=== PATIENT | male | born 1990 | race American Indian/Alaskan Native ===

== ENCOUNTER 2019-05-06 00:35 | Emergency (ER) | payer SELFPAY ==
[2019-05-06 01:28] LABS: Basophils # (Auto) 0.1 K/mm3 (0.0-0.1); Basophils % (Auto) 0.7 % (0.0-1.8); Eosinophils # (Auto) 0.1 K/mm3 (0.0-0.4); Hematocrit 40.6 % (35.5-45.6); Lymphocytes # (Auto) 1.6 K/mm3 (1.2-5.4); Mean Corpuscular HGB Conc 35 % (32-34); Mean Corpuscular Volume 90 fl (84-94); Monocytes # (Auto) 0.7 K/mm3 (0.0-0.8); Monocytes % (Auto) 9.9 % (0.0-7.3); Platelet Count 202 K/mm3 (140-440); Red Blood Count 4.51 M/mm3 (3.65-5.03); Red Cell Distribution Width 14.1 % (13.2-15.2)
[2019-05-06 01:49] LABS: BUN/Creatinine Ratio 9; Blood Urea Nitrogen 8 mg/dL (9-20); Calcium 9.2 mg/dL (8.4-10.2); Hemolysis Index 4
[2019-05-06 02:20] LABS: Bilirubin,Urine NEG (Negative); Blood,Urine NEG (Negative); Color,Urine Yellow (Yellow); Urobilinogen,Urine < 2.0 mg/dL (<2.0); WBC,Urine < 1.0 /HPF (0.0-6.0)
[2019-05-06 02:28] LABS: Amphetamine Screen,Urine PRESUMPTIVE NEGATIVE; Benzodiazepines Screen,Urine PRESUMPTIVE NEGATIVE; Cannabinoid Screen,Urine PRESUMPTIVE NEGATIVE; Cocaine Screen,Urine PRESUMPTIVE NEGATIVE; Methadone Screen,Urine PRESUMPTIVE NEGATIVE; Opiate Screen,Urine PRESUMPTIVE NEGATIVE
--- NOTE | 2019-05-06 02:36 | Emergency Department Report ---
HPI <ELVI BUCK - Last Filed: 05/06/19 09:51> - HPI HPI: 29-year-old -[place] male presents to the emergency department with a complaint of needing to be "stabilized" that he says is essentially being restarted on his medications. The patient says that it has been many months, if not close to one year, since he was last on medications for his bipolar disorder. He admits to some occasional auditory hallucinations. He denies any visual hallucinations or any suicidal or homicidal ideations. The patient is very twitchy and admits to feeling paranoid. At one point he is asking to be pl aced in isolation and one of the padded rooms so he can "have time to think." He denies any alcohol or illicit drug use. He denies having any primary care physician or psychiatrist for follow-up. He has not taken anything for his symptoms prior to presentation today. <WILNER ARITA Mary - Last Filed: 05/06/19 21:58> - General Chief Complaint: Psych Time Seen by Provider: 05/06/19 01:34 ED Past Medical Hx <KRISTEN BUCKNETTA - Last Filed: 05/06/19 09:51> - Past Medical History Previous Medical History?: Yes Hx Psychiatric Treatment: Yes (personality disorder) - Surgical History Past Surgical History?: No - Social History Smoking Status: Current Every Day Smoker Substance Use Type: None <WILNER ARITA - Last Filed: 05/06/19 21:58> - Medications Home Medications: Home Medications Medication Instructions Recorded Confirmed Last Taken Type ARIPiprazole 5 mg PO QDAY #30 tablet 05/06/19 Unknown Rx ED Review of Systems ROS: Stated complaint: MH EVALULATION Other details as noted in HPI <KRISTEN BUCKNETTA - Last Filed: 05/06/19 09:51> ROS: Stated complaint: MH EVALULATION Other details as noted in HPI Comment: All other systems reviewed and negative Constitutional: denies: chills, fever Respiratory: denies: cough, shortness of breath Cardiovascular: denies: chest pain, palpitations Gastrointestinal: denies: abdominal pain, vomiting Musculoskeletal: denies: back pain Neurological: denies: headache, weakness Psychiatric: auditory hallucinations, other (paranoia). denies: visual hallucinations, homicidal thoughts, suicidal thoughts <WILNER ARITA - Last Filed: 05/06/19 21:58> Physical Exam - Physical Exam Vital Signs: Vital Signs 05/06/19 05/06/19 05/06/19 00:40 02:18 08:00 Temperature 98.1 F 97.9 F 97.5 F L Pulse Rate 81 83 67 Respiratory 18 18 18 Rate Blood Pressure 115/58 Blood Pressure 134/88 136/93 [Left] O2 Sat by Pulse 99 98 98 Oximetry <ELVI BUCK - Last Filed: 05/06/19 09:51> - Physical Exam Vital Signs: Vital Signs 05/06/19 05/06/19 00:40 02:18 Temperature 98.1 F 97.9 F Pulse Rate 81 83 Respiratory 18 18 Rate Blood Pressure 115/58 Blood Pressure 134/88 [Left] O2 Sat by Pulse 99 98 Oximetry Physical Exam: GENERAL: The patient is well-developed well-nourished. HEENT: Normocephalic. Atraumatic. Patient has moist mucous membranes. EYES: Extraocular motions are intact. . NECK: Supple. Trachea is midline. CHEST/LUNGS: Clear to auscultation. There is no respiratory distress noted. HEART/CARDIOVASCULAR: Regular. There is no tachycardia. There is no murmur. ABDOMEN: There is no abdominal distention. SKIN:Skin is warm and dry. . NEURO: The patient is awake, alert, and oriented. The patient is cooperative. The patient has no focal neurologic deficits. Normal speech. MUSCULOSKELETAL: There is no tenderness or deformity. There is no limitation range of motion. There is no evidence of acute injury. PSYCH: Patient is very twitchy and anxious. <WILNER ARITA - Last Filed: 05/06/19 21:58> ED Course Vital Signs 05/06/19 05/06/19 05/06/19 00:40 02:18 08:00 Temperature 98.1 F 97.9 F 97.5 F L Pulse Rate 81 83 67 Respiratory 18 18 18 Rate Blood Pressure 115/58 Blood Pressure 134/88 136/93 [Left] O2 Sat by Pulse 99 98 98 Oximetry <ELVI BUCK - Last Filed: 05/06/19 09:51> Vital Signs 05/06/19 05/06/19 00:40 02:18 Temperature 98.1 F 97.9 F Pulse Rate 81 83 Respiratory 18 18 Rate Blood Pressure 115/58 Blood Pressure 134/88 [Left] O2 Sat by Pulse 99 98 Oximetry <WILNER ARITA - Last Filed: 05/06/19 21:58> ED Medical Decision Making - Lab Data Result diagrams: 05/06/19 01:16 05/06/19 01:16 - Medical Decision Making Psychiatric team has provided prescriptions for medications for Mr Rojas. He is discharged home. <ELVI BUCK - Last Filed: 05/06/19 09:51> - Lab Data Result diagrams: 05/06/19 01:16 05/06/19 01:16 - Medical Decision Making This patient presents to the emergency department with the request for being stabilized on psychiatric medications. He has history of bipolar disorder. He denies any suicidal or homicidal ideations. He does have some intermittent auditory hallucinations. Mostly the patient complains of some paranoia and appears twitchy and anxious. At one point he is asking to be allowed to be in isolation and one of the padded rooms so he can "have time to think." The patient does not necessarily meet criteria to be made a 1013 and require involuntary inpatient psychiatric admission. However he does need a psychiatric assessment and has agreed to remain in the emergency department until this can be done in the morning. His labs are mostly unremarkable. Vital signs stable. If necessary, I would deem him medically cleared for psychiatric placement. - Differential Diagnosis bipolar disorder, schizophrenia, schizoaffective, substance abuse <WILNER ARITA - Last Filed: 05/06/19 21:58> Critical care attestation.: If time is entered above; I have spent that time in minutes in the direct care of this critically ill patient, excluding procedure time. <ELVI BUCK - Last Filed: 05/06/19 09:51> Critical Care Time: No Critical care attestation.: If time is entered above; I have spent that time in minutes in the direct care of this critically ill patient, excluding procedure time. <WILNER ARITA - Last Filed: 05/06/19 21:58> ED Disposition Is pt being admited?: No Does the pt Need Aspirin: No <ELVI BUCK - Last Filed: 05/06/19 09:51> Is pt being admited?: No Time of Disposition: 02:36 <WILNER ARITA - Last Filed: 05/06/19 21:58> Clinical Impression: History of bipolar disorder, Paranoia, Anxious appearance Disposition: DC-01 TO HOME OR SELFCARE Condition: Stable Prescriptions: ARIPiprazole 5 mg PO QDAY #30 tablet Referrals: SILVIO ACUNA MD [Primary Care Provider] - 3-5 Days
[2019-05-06 08:22] VITALS: BP 136/93
[2019-05-06] MEDS ORDERED: ARIPiprazole 5 MG TAB PO SCH (10:00)
== END 2019-05-06 11:53 | disposition home or self-care (01) ==
LOC: ED 00:35
DX: F31.9 Bipolar disorder, unspecified (principal); F22 Delusional disorders; F41.9 Anxiety disorder, unspecified; F17.200 Nicotine dependence, unspecified, uncomplicated
CPT/HCPCS: 36415; 80048; 80307; 80320; 81001; 85025; 99284; G0480

== ENCOUNTER 2019-05-10 21:29 | Emergency (ER) | payer SELFPAY ==
[2019-05-10] MEDS ORDERED: HALOPERIDOL LACTATE 5 MG/1 ML INJ IM PRN (23:34)
[2019-05-10] MEDS ORDERED: LORazepam 2 MG/ML VIAL IM PRN (23:34)
--- NOTE | 2019-05-10 23:41 | Emergency Department Report ---
ED General Adult HPI - General Chief complaint: Psych Stated complaint: MH EVAL Time Seen by Provider: 05/10/19 23:14 Source: patient, EMS (EMS documentation not available at this time for chart review), RN notes reviewed, old records reviewed Mode of arrival: Stretcher Limitations: Other (patient appears to be disorganized and is a poor historian) - History of Present Illness Initial comments: This is a 29-year-old gentleman. This patient is not known to myself previously. Apparently has a history of bipolar disorder. He presented to this emergency department a few days ago with a request for psychiatric stabilization, he was seen by psychiatry, and was prescribed Abilify. Apparently, the patient has not filled this prescription. The patient is reportedly brought to the hospital by EMS with a complaint of homelessness, and not being able to take his prescription medication. The patient denies physical pain. The patient is a poor historian. He is wandering and erratic. He is not able to describe the qualitative nature of his symptoms, exacerbating or relieving factors. At one point in time, the patient made passive comments abo ut wanting to be on 1013 status. He was seen in this department a few days ago, had appropriate screening laboratory studies, medically cleared, and also cleared from psychiatry. No additional history is available at this time. -: unknown Radiation: other Severity scale (0 -10): 2 Quality: other Improves with: other Worsens with: other Associated Symptoms: other Treatments Prior to Arrival: other - Related Data Previous Rx's Medication Instructions Recorded Last Taken Type ARIPiprazole 5 mg PO QDAY #30 tablet 05/06/19 Unknown Rx Allergies Allergy/AdvReac Type Severity Reaction Status Date / Time No Known Allergies Allergy Unverified 05/06/19 00:44 ED Review of Systems ROS: Stated complaint: MH EVAL Other details as noted in HPI Comment: Unobtainable due to pts medical conditions (patient appears to be disorganized, he is a poor historian and not forthcoming.) ED Past Medical Hx - Past Medical History Previous Medical History?: Yes Hx Psychiatric Treatment: Yes (personality disorder) - Social History Smoking Status: Former Smoker Substance Use Type: None - Medications Home Medications: Home Medications Medication Instructions Recorded Confirmed Last Taken Type ARIPiprazole 5 mg PO QDAY #30 tablet 05/06/19 Unknown Rx ED Physical Exam - General Limitations: Other (psychiatrically disorganized) General appearance: alert, in no apparent distress - Head Head exam: Present: atraumatic, normocephalic - Eye Eye exam: Present: normal appearance, EOMI. Absent: nystagmus - ENT ENT exam: Present: normal exam, normal orophraynx, mucous membranes moist, normal external ear exam - Neck Neck exam: Present: normal inspection, full ROM. Absent: tenderness, meningismus - Respiratory Respiratory exam: Present: normal lung sounds bilaterally. Absent: respiratory distress - Cardiovascular Cardiovascular Exam: Present: regular rate, normal rhythm, normal heart sounds. Absent: bradycardia, tachycardia, irregular rhythm, systolic murmur, diastolic murmur, rubs, gallop - GI/Abdominal GI/Abdominal exam: Present: soft. Absent: distended, tenderness, guarding, rebound, rigid, pulsatile mass - Rectal Rectal exam: Present: deferred - Extremities Exam Extremities exam: Present: normal inspection, full ROM, other (2+ pulses noted in the bilateral upper and lower extremities. There is no long bony tenderness. The pelvis is stable. The muscular compartments are soft. There is no palpable cord. There is no redness, pus or streaking.). Absent: pedal edema, calf tenderness - Back Exam Back exam: Present: normal inspection, full ROM. Absent: tenderness, CVA tenderness (L), paraspinal tenderness, vertebral tenderness - Neurological Exam Neurological exam: Present: alert, other (there is no facial droop. Tongue is midline. Extraocular movements are intact bilaterally. Walking with a steady gait. Speaking in full sentences. Normal appropriate thought content. 5 out of 5 strength in 4 extremities. Sensation is intact to light touch in 4 extremities.) - Psychiatric Psychiatric exam: Present: agitated, flat affect - Skin Skin exam: Present: warm, dry, intact, normal color. Absent: rash ED Course Vital Signs 05/10/19 05/10/19 05/11/19 21:50 22:39 01:00 Temperature 98.2 F 98.2 F Pulse Rate 82 68 Respiratory 16 16 18 Rate Blood Pressure 142/86 Blood Pressure 142/86 102/76 [Right] O2 Sat by Pulse 100 100 97 Oximetry 05/11/19 05/11/19 07:46 14:34 Temperature 97.9 F 98.2 F Pulse Rate 70 95 H Respiratory 18 18 Rate Blood Pressure Blood Pressure 113/63 146/102 [Right] O2 Sat by Pulse 98 100 Oximetry - Reevaluation(s) Reevaluation #1: 05/10/19 23:39 Differential diagnosis, including not limited to: Homelessness, noncompliance, disorganized behavior, secondary gain, malingering, medical clearance for psychiatric placement and evaluation Assessment and plan: 29-year-old gentleman who appears to be poorly kept, likely homeless, presumably not taking his Abilify, presenting with disorganized behavior, likely multifactorial. Psychiatric consultation and case measured consultation requested. Laboratory studies from 4 days ago are reviewed and appreciated. Appropriate repeat laboratory studies are ordered to exclude emergent toxicologic ingestion, patient will be placed on emergency room hold, and once his initial data points have resulted, we will reassess. Reevaluation #2: 05/11/19 00:58 Screening laboratory studies reviewed and appreciated. Patient resting comfortably and in no acute distress. He will be given IV fluids for nonspecific elevation in CK. Given young age, normal renal function, this s hould decrease chanson with copious oral hydration and rest. At this point in time, the patient does not appear to have an immediate medical contraindication to psychiatric admission, evaluation, consultation and placement, or if they deem the patient suitable for discharge, discharge as per plan with case management and psychiatry. ED Medical Decision Making - Lab Data Result diagrams: 05/10/19 23:43 05/10/19 23:43 Vital Signs 05/10/19 05/10/19 21:50 22:39 Temperature 98.2 F Pulse Rate 82 Respiratory 16 16 Rate Blood Pressure 142/86 Blood Pressure 142/86 [Right] O2 Sat by Pulse 100 100 Oximetry Vital Signs 05/10/19 05/10/19 21:50 22:39 Temperature 98.2 F Pulse Rate 82 Respiratory 16 16 Rate Blood Pressure 142/86 Blood Pressure 142/86 [Right] O2 Sat by Pulse 100 100 Oximetry Lab Results 05/10/19 05/10/19 05/10/19 Range/Units 23:43 23:43 23:43 Hgb 12.9 (11.8-15.2) gm/dl Hct 36.8 (35.5-45.6) % Plt Count 208 (140-440) K/mm3 Sodium 142 (137-145) mmol/L Potassium 4.2 (3.6-5.0) mmol/L Chloride 105.6 (98-107) mmol/L Carbon Dioxide 26 D (22-30) mmol/L Anion Gap 15 mmol/L BUN 19 (9-20) mg/dL Creatinine 1.2 (0.8-1.5) mg/dL Estimated GFR > 60 ml/min BUN/Creatinine Ratio 16 % Glucose 116 H (75-100) mg/dL Calcium 9.4 (8.4-10.2) mg/dL Magnesium 2.10 (1.7-2.3) mg/dL Total Bilirubin 0.30 (0.1-1.2) mg/dL AST 51 H (5-40) units/L ALT 34 (7-56) units/L Alkaline Phosphatase 71 (35-129) units/L Total Creatine Kinase 1281 H (55-170) units/L Total Protein 6.6 (6.3-8.2) g/dL Albumin 4.1 (3.9-5) g/dL Albumin/Globulin Ratio 1.6 % Salicylates < 0.3 L (2.8-20.0) mg/dL Acetaminophen (10.0-30.0) ug/mL Plasma/Serum Alcohol (0-0.07) % 05/10/19 05/10/19 Range/Units 23:43 23:43 Hgb (11.8-15.2) gm/dl Hct (35.5-45.6) % Plt Count (140-440) K/mm3 Sodium (137-145) mmol/L Potassium (3.6-5.0) mmol/L Chloride (98-107) mmol/L Carbon Dioxide (22-30) mmol/L Anion Gap mmol/L BUN (9-20) mg/dL Creatinine (0.8-1.5) mg/dL Estimated GFR ml/min BUN/Creatinine Ratio % Glucose (75-100) mg/dL Calcium (8.4-10.2) mg/dL Magnesium (1.7-2.3) mg/dL Total Bilirubin (0.1-1.2) mg/dL AST (5-40) units/L ALT (7-56) units/L Alkaline Phosphatase (35-129) units/L Total Creatine Kinase (55-170) units/L Total Protein (6.3-8.2) g/dL Albumin (3.9-5) g/dL Albumin/Globulin Ratio % Salicylates (2.8-20.0) mg/dL Acetaminophen < 5.0 L (10.0-30.0) ug/mL Plasma/Serum Alcohol < 0.01 (0-0.07) % Critical care attestation.: If time is entered above; I have spent that time in minutes in the direct care of this critically ill patient, excluding procedure time. ED Disposition Clinical Impression: Homelessness Bipolar disorder Qualifiers: Active/Remission status: currently active Current bipolar episode type: manic Current episode severity: unspecified Qualified Code(s): F31.10 - Bipolar disorder, current episode manic without psychotic features, unspecified Disposition: DC-01 TO HOME OR SELFCARE Is pt being admited?: No Does the pt Need Aspirin: No Condition: Stable Instructions: Bipolar Disorder (ED) Additional Instructions: Follow-up instructions as per psychiatry. See referral to [facility] for primary care Referrals: [facility] [Outside] - 3-5 Days [facility] [Outside] - 3-5 Days SILVIO ACUNA MD [Primary Care Provider] - 3-5 Days
[2019-05-11 00:08] LABS: Hematocrit 36.8 % (35.5-45.6); Hemoglobin 12.9 gm/dl (11.8-15.2)
[2019-05-11 00:37] LABS: Alanine Aminotransferase 34 units/L (7-56); Albumin 4.1 g/dL (3.9-5); BUN/Creatinine Ratio 16; Blood Urea Nitrogen 19 mg/dL (9-20); Calcium 9.4 mg/dL (8.4-10.2); Hemolysis Index 15
[2019-05-11] MEDS ORDERED: SODIUM CHLORIDE 0.9% 1000 ML 1,000 ML IV ONE (00:39)
[2019-05-11] MEDS ORDERED: SODIUM CHLORIDE 0.9% 1000 ML 2,000 ML IV ONE (00:39)
[2019-05-11] MEDS ORDERED: SODIUM CHLORIDE 0.9% 1000 ML 1,000 ML ONE (04:37)
[2019-05-11 13:23] LABS: Bilirubin,Urine NEG (Negative); Blood,Urine NEG (Negative); Color,Urine Yellow (Yellow); Mucus,Urine FEW /HPF; Protein,Urine <15 mg/dL mg/dL (Negative); Urobilinogen,Urine < 2.0 mg/dL (<2.0); WBC,Urine < 1.0 /HPF (0.0-6.0)
[2019-05-11 13:34] LABS: Amphetamine Screen,Urine PRESUMPTIVE NEGATIVE; Benzodiazepines Screen,Urine PRESUMPTIVE NEGATIVE; Cannabinoid Screen,Urine PRESUMPTIVE NEGATIVE; Cocaine Screen,Urine PRESUMPTIVE NEGATIVE; Methadone Screen,Urine PRESUMPTIVE NEGATIVE; Opiate Screen,Urine PRESUMPTIVE NEGATIVE
[2019-05-11 14:36] VITALS: BP 146/102
== END 2019-05-11 16:31 | disposition home or self-care (01) ==
LOC: ED 21:29
DX: F31.9 Bipolar disorder, unspecified (principal); F41.9 Anxiety disorder, unspecified; R41.0 Disorientation, unspecified; Z59.0 Homelessness; Z87.891 Personal history of nicotine dependence; Z98.890 Other specified postprocedural states
CPT/HCPCS: 36415; 80053; 80307; 81001; 82550; 83735; 85014; 85018; 85049; 96360; 96372; 99284; J2060; J7030; 80320; G0480